=== PATIENT | female | born 1940 | race Caucasian/White ===

== ENCOUNTER 2017-12-13 16:04 | Inpatient (IN) ==
[2017-12-13] MEDS ORDERED: Aspirin 325 MG TABLET PO ONE (16:25)
--- NOTE | 2017-12-13 16:50 | Emergency Department Note ---
Disposition Clinical Impression: Atrial fibrillation with rapid ventricular response, Shortness of breath Disposition: Admitted As Inpatient Condition: Good Referrals: Lloyd Newman MD [Primary Care Provider] - Forms: ED Satisfaction Letter Time of Disposition: 17:44 General Adult HPI - General Chief complaint: ED Shortness of Breath/Dyspnea Stated complaint: SOB Time Seen by Provider: 12/13/17 16:11 Source: patient, EMS Mode of arrival: EMS Limitations: no limitations, age Nursing Notes Reviewed: Yes Vital Signs Reviewed: Yes - History of Present Illness HPI Narrative: Patient is a 76-year-old female that presents the emergency department for shortness of breath. EMS states that when they first arrived at her house her oxygen saturations were in the 50s. They state that she was initially put on nasal cannula oxygen which brought her sats up into the 70s. They put her on a nonrebreather face mask which brought her oxygen saturations up into the 80s. Patient states that she has been feeling increased shortness of breath over the past couple of days. States is been progressively getting worse. Family at bedside denies any history of COPD or heart failure. Patient denies any chest pain at this time. Patient states that the symptoms seem to be worse if she leans back but has not been sleeping in bed because she is unable to get into bed she states that last night she slept on the floor. Patient denies any fevers. Patient states that she has had a mild cough but it has been nonproductive. Pain Scale: 0 - Related Data Home Medications Medication Instructions Recorded Confirmed Aspirin [Ecotrin] 325 mg PO DAILY 12/13/17 12/13/17 Carvedilol [Coreg] 25 mg PO BID 12/13/17 12/13/17 Duloxetine HCl [Cymbalta] 30 mg PO BID 12/13/17 12/13/17 Flecainide Acetate 50 mg PO BID 12/13/17 12/13/17 Metformin HCl 1,000 mg PO BID 12/13/17 12/13/17 Ramipril [Altace] 10 mg PO BID 12/13/17 12/13/17 Previous Rx's Medication Instructions Recorded NIFEdipine XL (24 HR) [Procardia 30 mg PO QPM #30 tablet.er 11/25/17 XL] Allergies Allergy/AdvReac Type Severity Reaction Status Date / Time amino acids [From Ephadrene] Allergy Confusion Verified 11/25/17 14:13 chromium [From Ephadrene] Allergy Confusion Verified 11/25/17 14:13 cyanocobalamin (vitamin B12) Allergy Confusion Verified 11/25/17 14:13 [From Ephadrene] herbal complex no. 35 Allergy Confusion Verified 11/25/17 14:13 [From Ephadrene] iodine Allergy Rash Verified 11/25/17 14:13 Penicillins Allergy Rash Verified 11/25/17 14:13 pyridoxine [From Ephadrene] Allergy Confusion Verified 11/25/17 14:13 All systems ED: reviewed and negative except as stated. Constitutional: Denies: fever Cardiovascular: Denies: chest pain Respiratory: Reports: cough, dyspnea. Denies: sputum production Gastrointestinal: Reports: abdominal pain. Denies: nausea, vomiting Past Medical History - Past Medical History Medical history: Reports: arthritis, atrial fibrillation, CVA, diabetes, GERD, hypertension Psychiatric history: Reports: no psych history - Social History Smoking Status: Never smoker Smokeless Tobacco Status: No Alcohol use: Reports: none Physical Exam - General Limitations: physical limitation, age General appearance: alert, in distress - Head Head exam: atraumatic, normocephalic - Eye Eye exam: Present: normal appearance, EOMI - Neck Neck exam: Present: normal inspection, full ROM, trachea midline - Respiratory Respiratory exam: Present: other (Mild crackles at bilateral bases) - Cardiovascular Cardiovascular exam: Present: tachycardia, irregular rhythm, normal heart sounds , +S1, +S2 - Abdominal Exam Abdominal exam: Present: soft, Non-Tender, normal bowel sounds - Neurological Exam Neurological exam: Present: alert, oriented X3 - Psychiatric Psychiatric exam: Present: normal affect, normal mood - Skin Skin exam: Present: warm, dry, intact Course Vital Signs Temperature 98.3 F 12/13/17 16:11 Pulse Rate 132 12/13/17 16:11 Respiratory Rate 26 12/13/17 16:11 Blood Pressure 166/113 12/13/17 16:11 O2 Sat by Pulse Oximetry 98 12/13/17 16:11 Temperature 98.3 F 12/13/17 16:11 Pulse Rate 114 12/13/17 17:12 Respiratory Rate 24 12/13/17 17:12 Blood Pressure 161/92 12/13/17 17:12 O2 Sat by Pulse Oximetry 95 12/13/17 17:12 Oxygen Delivery Oxygen Delivery Non Rebreather Mask Medical Decision Making - [facility] Narrative Medical decision making narrative: Due to the patient presents to emergency room with increased work of breathing and the patient appearing to be tachycardic in the future fibrillation with rapid ventricular response we will attempt rate control the patient to improve her respiratory status. We also obtain basic laboratory testings, chest x-ray and EKG. EKG did show atrial fibrillation. Chest x-ray showed possible pulmonary edema. After the patient received a bolus of Cardizem her heart rate decreased into the 90s and her respiratory status improved and did not require as much oxygen. Patient's troponin is 0.06 which is likely secondary to the patient's rate. Patient denies having any active chest pain or any chest pain at all today. Patient also has some mild worsening of her chronic kidney disease. This and the symptoms the patient will need to be admitted to the hospital for further evaluation and management. I called and talked the admitting hospitalist Dr. Razo and she is except the patient to their service. She did request a 40 of Lasix be given based on the patient's chest x- ray findings. This will be done prior to patient being admitted to the hospital. - Medical Records Medical records reviewed: Yes I reviewed the patient's medical records. - Lab Data Lab results reviewed: Yes I reviewed the patient's lab results. Result diagrams: 12/13/17 16:25 12/13/17 16:25 Lab Results 12/13/17 12/13/17 12/13/17 Range/Units 16:25 16:25 16:25 WBC 10.8 (4.3-11.1) K/mcL RBC 3.06 L (3.82-4.97) M/mcL Hgb 9.5 L (11.5-15.4) g/dL Hct 27.7 L (35.3-44.9) % MCV 90.5 (83.0-100.0) fL MCH 31.0 (28.0-33.3) pg MCHC 34.3 (31.6-35.5) g/dL RDW 13.3 (11.5-14.5) % Plt Count 368 (140-400) K/mcL MPV 9.8 (9.4-12.4) fL Immature Gran % 1.2 (0-4) % Seg Neutrophils % 84.7 % Lymphocytes % 7.2 % Monocytes % 6.2 % Eosinophils % 0.2 % Basophils % 0.5 % Neutrophils # 9.2 H (1.6-8.9) K/mcL Lymphocytes # 0.8 (0.6-4.6) K/mcL Monocytes # 0.7 (0.0-1.3) K/mcL Eosinophils # 0.0 (0.0-0.6) K/mcL Basophils # 0.1 (0.0-0.2) K/mcL Nucleated RBCs/100 WBC 0.2 H (0) /100 WBC PT 13.4 H (9.4-12.1) Seconds INR 1.2 APTT 26.8 (26.0-36.0) Seconds Sodium 134 L (136-145) mEq/L Potassium 4.9 (3.5-5.1) mEq/L Chloride 102 (98-107) mEq/L Carbon Dioxide 18 L (23-29) mEq/L BUN 41 H (8-23) mg/dL Creatinine 1.39 H (0.60-1.20) mg/dL Est GFR ( Amer) 45 L (> 60) Est GFR (Non-Af Amer) 37 L (> 60) BUN/Creatinine Ratio 29 H (6-26) Glucose 212 H (70-105) mg/dL Calculated Osmolality 294 (280-300) Calcium 9.0 (8.6-10.3) mg/dL Magnesium 1.6 (1.6-2.6) mg/dL Troponin I 0.06 H* (< 0.04) ng/mL TSH 1.676 (0.340-5.600) mcIU/mL - Radiology Data Radiology results reviewed: Yes I reviewed the patient's radiology results. Chest X-Ray 12/13/17 16:25 IMPRESSION: Findings in keeping with congestive heart failure with pulmonary edema and small pleural effusions. D/ / Shad Wylie MD / Shad Wylie MD Interpreting Provider: Shad Wylie MD - EKG Data EKG #1 EKG attestation: Yes I reviewed and interpreted this EKG. EKG results narrative: EKG shows atrial fibrillation with rapid ventricular response at a rate of 139 bpm, QRS duration 86, QTc of 443. No evidence of STEMI on EKG. This is compared to previous EKG on 10/30 08/15 which showed atrial fibrillation at a rate of 113 bpm. EKG #2 EKG attestation: Yes I reviewed and interpreted this EKG. EKG results narrative: EKG at 1700 showed atrial fibrillation at a rate of 108 bpm, curious duration 90 , QTc of 446. There are occasional PVCs noted on EKG. No evidence of STEMI. Critical Care Time Critical Care Time: Yes Total Critical Care Time: 35 Attestation: The high probability of a clinically significant, sudden or life threatening deterioration of the [CV] system(s) required my full and direct attention, intervention and personal management. The aggregate critical care time was [35] minutes. This time is in addition to time spent performing reported procedures but includes the following: [x] Data Review and interpretation [x] Patient assessment and monitoring of vital signs [x] Documentation [x] Medication orders and management Attestation Statement - Attestation Attestation: I examined this patient and my medical decision-making was reviewed with the Resident Physician, Dr. Restrepo. I agree with the documented findings, disposition and treatment plan as described except to the extent set forth below. Patient is a 76-year-old white female history of atrial fibrillation who presents to the emergency department today brought by EMS with the 2 to three- day history of gradually worsening shortness of breath. When asked about palpitations patient denies any but states she never notices her heart racing when it is. She denies any chest pain pressure or heaviness, no fevers or chills no cough no history of COPD and she denies any history of CHF. I agree with patient's physical exam findings as documented. Patient was tachycardic and hypertensive on arrival. Patient's sats improved on nonrebreather mask on arrival. Patient's EKG shows a paced rhythm but underlying rhythm between pacing is irregularly irregular without acute ischemia. Patient's chest x-ray shows mild pulmonary edema. Patient was placed on Cardizem bolus and drip which has controlled her rate that she remains in atrial fibrillation. We discussed starting anticoagulants with the patient she does not take these at home had a bad experience with [facility] and is refusing anticoagulation. Patient has an elevated troponin at 0.06 we have no old troponins for comparison. Patient denies chest pain and is not had any pain throughout this episode over the past few days. Patient with mild renal insufficiency. At this time patient will be admitted to the hospitalist service for further evaluation and management of atrial fibrillation with RVR currently rate controlled now on Cardizem, respiratory distress, acute pulmonary edema. Patient was given Lasix IV and is significantly improved following rate control at this time. Case was discussed with hospitalist who will resume care of the patient.
[2017-12-13 17:04] LABS: Basophils # 0.1 K/mcL (0.0-0.2); Basophils % 0.5 %; Eosinophils % 0.2 %; Hematocrit 27.7 % (35.3-44.9); Hemoglobin 9.5 g/dL (11.5-15.4); Immature Granulocytes % 1.2 % (0-4); Lymphocytes # 0.8 K/mcL (0.6-4.6); Lymphocytes % 7.2 %; Mean Corpuscular HGB Conc 34.3 g/dL (31.6-35.5); Mean Corpuscular Volume 90.5 fL (83.0-100.0); Mean Platelet Volume 9.8 fL (9.4-12.4); Monocytes # 0.7 K/mcL (0.0-1.3); Monocytes % 6.2 %; Neutrophils # 9.2 K/mcL (1.6-8.9); Nucleated Red Blood Cells 0.2 /100 WBC (0); Platelet Count 368 K/mcL (140-400); Red Blood Count 3.06 M/mcL (3.82-4.97); Red Cell Distribution Width 13.3 % (11.5-14.5); Segmented Neutrophils % 84.7 %
[2017-12-13 17:09] LABS: INR 1.2; Prothrombin Time 13.4 Seconds (9.4-12.1)
[2017-12-13 17:12] LABS: Activated Partial Thrombo Time 26.8 Seconds (26.0-36.0)
[2017-12-13 17:24] LABS: Magnesium 1.6 mg/dL (1.6-2.6); Potassium 4.9 mEq/L (3.5-5.1)
[2017-12-13 17:29] LABS: Troponin I 0.06 ng/mL (< 0.04)
[2017-12-13 17:39] LABS: Thyroid Stimulating Hormone 1.676 mcIU/mL (0.340-5.600)
[2017-12-13] MEDS ORDERED: Furosemide 40 MG/4 ML VIAL IVP ONE (18:00)
[2017-12-13] MEDS ORDERED: Dextrose Gel 15 GM/37.5 ML TUBE PO PRN ×2 (18:06)
[2017-12-13] MEDS ORDERED: *HR* Dextrose 50 % in Water (Syg) 50 ML SYRINGE IVP PRN (18:06)
[2017-12-13] MEDS ORDERED: D5% in Water 1,000 ML IVC PRN (18:06)
[2017-12-13] MEDS ORDERED: Naloxone 0.4 MG/ML INJ IVP PRN (18:08)
--- NOTE | 2017-12-13 18:14 | Internal Med History&Physical ---
Date of Encounter: 12/14/17 Time of Encounter: 18:43 Internal Medicine - H&P: HPI Chief complaint: Shortness of breath. Admitted From: Home Plans for Post Hospital Care: Home History of present illness: Ms. Colon is a 76 year old female with medical history of atrial fibrillation with a pacemaker, not on anticoagulation, hypertension who presented with shortness of breath. The patient is seen and evaluated at the bedside in the emergency room with family, she reports being in her usual state of health until 3 days ago when she started getting short of breath. She reports associated raspy sensation and sounds whenever she takes a deep breath. She denies chest pain. She reports cough that is unproductive of sputum, and reports progression, shortness of breath from exertion to rest, there is associated orthopnea, she denies PND. She denies leg edema. The patient reports checking her blood pressure for the past 4 days at home and has no desire heart rate has been persistently high. However she did not present to the hospital because she was not feeling very sick. At my time of review, the patient is dyspneic and in moderate respiratory distress but able to complete sentences. She denies fever or chills, she denies recent travels, she denies cough tenderness, she denies nausea vomiting or diarrhea. She denies changes in urinary habits. She has no urinary symptoms. She denies dizziness or diaphoresis. She denies illicit drug use, she has significant family history of coronary artery disease. Allergies as documented. Upon presentation to the ER, the patient was tachypneic with respiratory rates 25-30, hypoxic and tachycardic with EKG showing A. fib with RVR with a paced rhythm. No ST segment changes were noted. Patient's chest x-ray showed pulmonary edema. Further workup showed normal magnesium, elevated troponin at 0.06, and chemistries at baseline. She does have history of chronic kidney disease stage III and follows up with Dr. Barrow. She continues to require O2 supplementaion via oxy mask The patient has no advance directives patient has a living will and she states that she is full code She is high risk for cardiopulmonary decompensation and demise Past Med Surg Social Fam HX - Past Medical History Medical history: arthritis, atrial fibrillation, CVA, diabetes, GERD, hypertension Psychiatric history: no psych history - Social History Smoking Status: Never smoker Smokeless Tobacco Status: No Alcohol use: none Internal Medicine - H&P: Meds NIFEdipine XL (24 HR) [Procardia XL] 30 mg PO QPM #30 tablet.er 11/25/17 [Rx] Aspirin [Ecotrin] 325 mg PO DAILY 12/13/17 [History] Carvedilol [Coreg] 25 mg PO BID 12/13/17 [History] Duloxetine HCl [Cymbalta] 30 mg PO BID 12/13/17 [History] Flecainide Acetate 50 mg PO BID 12/13/17 [History] Metformin HCl 1,000 mg PO BID 12/13/17 [History] Ramipril [Altace] 10 mg PO BID 12/13/17 [History] 3 Allergy/AdvReac Type Severity Reaction Status Date / Time amino acids [From Ephadrene] Allergy Confusion Verified 11/25/17 14:13 chromium [From Ephadrene] Allergy Confusion Verified 11/25/17 14:13 cyanocobalamin (vitamin B12) Allergy Confusion Verified 11/25/17 14:13 [From Ephadrene] herbal complex no. 35 Allergy Confusion Verified 11/25/17 14:13 [From Ephadrene] iodine Allergy Rash Verified 11/25/17 14:13 Penicillins Allergy Rash Verified 11/25/17 14:13 pyridoxine [From Ephadrene] Allergy Confusion Verified 11/25/17 14:13 All Systems PM: A 10-system review of systems was performed and is negative for pertinent findings except as documented above in the HPI. - Constitutional Constitutional: as per HPI - EENT Eyes: as per HPI Ears: as per HPI Nose, mouth and throat: as per HPI - Cardiovascular Cardiovascular ROS IM: as per HPI - Respiratory Respiratory: as per HPI - Gastrointestinal Gastrointestinal: as per HPI - Genitourinary Genitourinary: as per HPI - Musculoskeletal Musculoskeletal ROS IM: as per HPI - Integumentary Integumentary IM: as per HPI - Neurological Neurological ROS: as per HPI - Hematologic/Lymphatic Hematologic/Lymphatic: as per HPI - Constitutional Vitals: Temp Pulse Resp BP Pulse Ox 98.3 F 114 24 161/92 95 12/13/17 16:11 12/13/17 17:12 12/13/17 17:12 12/13/17 17:12 12/13/17 17:12 General appearance: Present: mild distress, A&O X 3, pleasant Exam: see detailed exam below - Head Head exam: Present: atraumatic, normocephalic - Eye Eye exam: Present: PERRL, conjuntiva pink, sclera anicteric - ENT ENT exam: Present: mucous membranes dry - Neck Neck exam general surgery: Present: normal inspection - Respiratory Respiratory exam: Present: rales (bilateral lower lung bases rales), respiratory distress, tachypnea. Absent: stridor, wheezes - Cardiovascular Cardiovascular exam: Present: gallop, irregular rhythm, JVD, +S1, +S2 - GI/Abdominal GI/Abdominal exam: Present: normal bowel sounds, soft, no peritoneal signs. Absent: distended, tenderness - Extremities Exam Extremities exam: Present: warm, radial pulses palpable and symmetrical. Absent : calf tenderness, cyanotic, pedal edema - Neurological Exam Neurological exam: Present: alert, CN II-XII intact, oriented X3, no focal deficits. Absent: pronater drift, facial droop, speech deficit - Skin Skin exam: Present: dry, intact Internal Med - H&P Results - Labs CBC & Chem 7: 12/14/17 04:58 12/14/17 04:58 Labs: Short CBC 12/13/17 Range/Units 16:25 WBC 10.8 (4.3-11.1) K/mcL Hgb 9.5 L (11.5-15.4) g/dL Hct 27.7 L (35.3-44.9) % Plt Count 368 (140-400) K/mcL Neutrophils # 9.2 H (1.6-8.9) K/mcL BMP 12/13/17 16:25 Sodium 134 L Potassium 4.9 Chloride 102 Carbon Dioxide 18 L BUN 41 H Creatinine 1.39 H Glucose 212 H Calcium 9.0 Cardiac Enzymes 12/13/17 Range/Units 16:25 Troponin I 0.06 H* (< 0.04) ng/mL - Impressions ITS Impressions Chest X-Ray 12/13/17 16:25 IMPRESSION: Findings in keeping with congestive heart failure with pulmonary edema and small pleural effusions. D/ / Shad Wylie MD / Shad Wylie MD Interpreting Provider: Shad Wylie MD - Assessment and plan (1) Atrial fibrillation with rapid ventricular response Current Visit: Yes Status: Acute Assessment and plan: Resume patient's home doses of coreg hold flecanide till cardio eval continue cardizem gtt patient refuses anticoagulation (2) Acute respiratory failure with hypoxia Current Visit: Yes Status: Acute Assessment and plan: secondary to pulmonary edema no ECHO on chart, ordered Continue O2 supplement Patient is full code and may require ventilation if not improving (3) CHF exacerbation Current Visit: Yes Status: Acute Assessment and plan: Follow ECHO Continue lasix IV 40mg daily Strict I/O Daily weighs Fluid restriction, continue BB, continue ACEI Continue O2 Qualifiers: Heart failure type: unspecified Qualified Code(s): I50.9 - Heart failure, unspecified (4) Pulmonary edema Current Visit: Yes Status: Acute Assessment and plan: as above Qualifiers: Chronicity: acute Qualified Code(s): J81.0 - Acute pulmonary edema (5) Elevated troponin Current Visit: Yes Status: Acute (6) HTN (hypertension) Current Visit: Yes Status: Chronic Assessment and plan: continue home meds Qualifiers: Hypertension type: essential hypertension Qualified Code(s): I10 - Essential (primary) hypertension (7) Abnormal renal function Current Visit: Yes Status: Acute Assessment and plan: patient with known CKD III, follows with Dr. Barrow, obtain renal USS - Time Spent With Patient Total time spent is greater than 50% in coordination of care (as documented) at patient's floor/unit and/or counseling patient:
[2017-12-13] MEDS: *HR* Heparin 5,000 UNIT/ML VIAL SQ SCH (18:48)
[2017-12-13] MEDS: Insulin LISPRO 300 UNITS/3 ML VIAL SQ SCH (23:59)
[2017-12-14 01:03] LABS: ABG Base Excess -6 mEq/L (-2 to 3); ABG HCO3 18 mEq/L (21-27); ABG Oxygen Saturation 93 % (95-98); ABG PCO2 28 mmHg (35-45); ABG PH 7.41 pH Units (7.32-7.45); ABG PO2 64 mmHg (85-104); ABG TCO2 18 mEq/L (20-26)
[2017-12-14 05:11] LABS: Basophils # 0.1 K/mcL (0.0-0.2); Basophils % 0.6 %; Eosinophils # 0.1 K/mcL (0.0-0.6); Eosinophils % 1.1 %; Hematocrit 23.8 % (35.3-44.9); Hemoglobin 8.2 g/dL (11.5-15.4); Immature Granulocytes % 1.1 % (0-4); Lymphocytes # 0.6 K/mcL (0.6-4.6); Lymphocytes % 6.1 %; Mean Corpuscular HGB Conc 34.5 g/dL (31.6-35.5); Mean Corpuscular Hemoglobin 31.5 pg (28.0-33.3); Mean Corpuscular Volume 91.5 fL (83.0-100.0); Mean Platelet Volume 9.9 fL (9.4-12.4); Monocytes # 0.6 K/mcL (0.0-1.3); Monocytes % 6.1 %; Neutrophils # 8.6 K/mcL (1.6-8.9); Nucleated Red Blood Cells 0.2 /100 WBC (0); Platelet Count 295 K/mcL (140-400); Red Cell Distribution Width 13.4 % (11.5-14.5)
[2017-12-14 05:33] LABS: Calcium 8.7 mg/dL (8.6-10.3); Potassium 4.3 mEq/L (3.5-5.1)
[2017-12-14] MEDS: *HR* Heparin 5,000 UNIT/ML VIAL SQ SCH ×2 (05:53→16:19)
[2017-12-14] MEDS: Insulin LISPRO 300 UNITS/3 ML VIAL SQ SCH ×4 (08:17→20:27)
[2017-12-14] MEDS: Aspirin Enteric Coated 325 MG Tablet PO SCH (08:20)
[2017-12-14] MEDS: Furosemide 40 MG/4 ML VIAL IVP SCH ×2 (08:33→16:19)
[2017-12-14] MEDS ORDERED: Furosemide 40 MG/4 ML VIAL IVP SCH (09:00)
--- NOTE | 2017-12-14 10:41 | Electrophysiology Consult Note ---
Date of Encounter: 12/14/17 Time of Encounter: 10:37 Assessment and Plan (1) Atrial fibrillation with rapid ventricular response Current Visit: Yes Status: Acute Better rate control on IV cardizem. Will need to review outside records/ pacemaker checks to assess chronicity of AF. (2) CHF exacerbation Current Visit: Yes Status: Acute Agree with diuresis, check LV fxn., review records. Qualifiers: Heart failure type: unspecified Qualified Code(s): I50.9 - Heart failure, unspecified (3) Elevated troponin Current Visit: Yes Status: Acute Likely secondary to AF with RVR and CHF but unknown recent ischemic evluation. Discussion w patient/family: The assessment and plan as outlined above was discussed with the patient and/or family members who expressed understanding and agreement. All questions were answered. Thank you for involving us in the care of your patient. Please call with any questions. History of Present Illness Consult date: 12/14/17 Requesting physician: Aaron Razo Consult reason: AF, CHF Chief complaint: SOB History of present illness: Ms. Colon is a 76 year old female who presents with SOB. She admits to several weeks of worsening symptoms. She has a history of AF and pacemaker but does not follow with cardiology here to details are unclear. Uncertain it AF is paroxsysmal or persistent. An EKG from 2010 shows AF, she is treated with flecainide. She is unaware of her heart rhythm but notes her heart rates have been elevated in the past several weeks. She has refused anticoagulation in the past. Past Med Surg Social Fam HX - Past Medical History Medical history: arthritis, atrial fibrillation, CVA, diabetes, GERD, hypertension Psychiatric history: no psych history - Past Surgical History Surgical History: pacemaker/AICD - Social History Smoking Status: Never smoker Smokeless Tobacco Status: No Alcohol use: none - Family History Father Cause of : "Heart failure Hx Family Cardiac Disorders: Yes Medications and Allergies NIFEdipine XL (24 HR) [Procardia XL] 30 mg PO QPM #30 tablet.er 11/25/17 [Rx] Aspirin [Ecotrin] 325 mg PO DAILY 12/13/17 [History] Carvedilol [Coreg] 25 mg PO BID 12/13/17 [History] Duloxetine HCl [Cymbalta] 30 mg PO BID 12/13/17 [History] Flecainide Acetate 50 mg PO BID 12/13/17 [History] Metformin HCl 1,000 mg PO BID 12/13/17 [History] Ramipril [Altace] 10 mg PO BID 12/13/17 [History] 3 Allergy/AdvReac Type Severity Reaction Status Date / Time amino acids [From Ephadrene] Allergy Confusion Verified 11/25/17 14:13 chromium [From Ephadrene] Allergy Confusion Verified 11/25/17 14:13 cyanocobalamin (vitamin B12) Allergy Confusion Verified 11/25/17 14:13 [From Ephadrene] herbal complex no. 35 Allergy Confusion Verified 11/25/17 14:13 [From Ephadrene] iodine Allergy Rash Verified 11/25/17 14:13 Penicillins Allergy Rash Verified 11/25/17 14:13 pyridoxine [From Ephadrene] Allergy Confusion Verified 11/25/17 14:13 All Systems Review: The remainder of the systems were reviewed and are negative Physical Examination General: Conversant, No Apparent Distress HEENT: Atraumatic, Normocephaly, Mucus Membranes Moist Neck: No JVD, Normal carotid pulses Cardiac: Other (Irreg) Lungs: Other (scattered ronchi) Neuro: Alert and responsive, No focal deficits noted Abdomen: Soft, Non-Tender Skin: No rashes noted on visualized skin Musculoskeletal: No Chest Wall Tenderness Results 12/14/17 04:58 12/14/17 04:58 Lab Results 12/13/17 12/13/17 12/14/17 20:46 22:03 04:58 WBC 10.2 Hgb 8.2 L Hct 23.8 L Plt Count 295 D-Dimer 3945 H Sodium Potassium Chloride Carbon Dioxide BUN Creatinine Glucose Calcium Troponin I 0.07 H* 12/14/17 12/14/17 04:58 04:58 WBC Hgb Hct Plt Count D-Dimer Sodium 135 L Potassium 4.3 Chloride 105 Carbon Dioxide 18 L BUN 44 H Creatinine 1.39 H Glucose 226 H Calcium 8.7 Troponin I 0.07 H* - EKG Interpretation EKG results cardiology: other (AF with ventricular pacing) Consult Discharge Plan - Plan Referrals: Lloyd Newman MD [Primary Care Provider] -
--- NOTE | 2017-12-14 14:37 | Internal Med Progress Note ---
Hospitalist Progress Note - Encounter Date of Encounter: 12/14/17 Time of Encounter: 09:00 - Subjective Interval History: Reports some anxiety, desaturates on NC, currently wearing NRB mask; improved palpitations, dyspnea and chest discomfort; no fever/chills, cough; on IV Cardizem drip; - Exam Vitals: Temp Pulse Resp BP Pulse Ox 98.5 F 77 18 118/71 87 12/14/17 11:23 12/14/17 11:23 12/14/17 11:23 12/14/17 11:23 12/14/17 11:23 Exam: General: Elderly female lying comfortably in bed in no acute distress, on NRB mask Skin: Warm and supple Chest: B/L coarse breath sounds, bibasal crackles Heart: Irregular rate; No rubs or murmurs. Abdomen: Non-distended, soft and nontender Extremities: No clubbing, cyanosis or edema. No calf tenderness. Normal distal pulses. Neurological: Awake, alert and oriented to person, place and time. No focal deficits. Psych: Affect appropriate. - Assessment and Plan (1) Atrial fibrillation with rapid ventricular response Current Visit: Yes Status: Acute Assessment and Plan: patient has history of paroxysmal atrial fibrillation, s/p PPM, refused anticoagulation in the past; on beta finesse and Flecainide at home; started on IV Cardizem drip, HR is improved; continue Coreg, Telemetry monitoring; Flecainide has been held; F/up TTE and Cardiology consult; (2) Pulmonary edema Current Visit: Yes Status: Acute Assessment and Plan: likely due to tachycardia, continue supplemental O2 and IV diuresis; (3) CHF exacerbation Current Visit: Yes Status: Acute Assessment and Plan: No previous Echo report available; check TTE; will increase IV Lasix to 40mg BID, continue fluid restriction, urine output monitoring; beta finesse, CCB; continue Telemetry monitoring; (4) Elevated troponin Current Visit: Yes Status: Acute Assessment and Plan: mild Troponin leak around 0.07, repeat levels flat and adynamic; likely tachycardia-induced; continue Telemetry and current management; (5) HTN (hypertension) Current Visit: Yes Status: Chronic (6) Acute respiratory failure with hypoxia Current Visit: Yes Status: Acute Assessment and Plan: likely due to acute CHF and tachycardia; continue current management, supplemental O2 and wean down FiO2 as tolerated; (7) Chronic kidney disease Current Visit: Yes Status: Chronic Assessment and Plan: serum creatinine noted to be at 1.39, c/w her baseline; monitor closely; (8) Diabetes mellitus Current Visit: Yes Status: Chronic Assessment and Plan: blood sugars noted to be elevated; continue Accucheck blood glucose monitoring with SSI; diabetic diet; DVT Prophylaxis: on s.c Heparin - Time Spent with Patient Total time spent is greater than 50% in coordination of care (as documented) at patient's floor/unit and/or counseling patient: Plan of Care Discussed with: patient Internal Medicine: Result - Labs CBC & Chem 7: 12/14/17 04:58 12/14/17 04:58 Labs: Short CBC 12/14/17 Range/Units 04:58 WBC 10.2 (4.3-11.1) K/mcL Hgb 8.2 L (11.5-15.4) g/dL Hct 23.8 L (35.3-44.9) % Plt Count 295 (140-400) K/mcL Neutrophils # 8.6 (1.6-8.9) K/mcL BMP 12/14/17 04:58 Sodium 135 L Potassium 4.3 Chloride 105 Carbon Dioxide 18 L BUN 44 H Creatinine 1.39 H Glucose 226 H Calcium 8.7 Cardiac Enzymes 12/13/17 12/14/17 Range/Units 22:03 04:58 Troponin I 0.07 H* 0.07 H* (< 0.04) ng/mL - ABG Interpretation ABG results: ABG ABG pH 7.41 pH Units (7.32-7.45) 12/14/17 00:58 ABG pCO2 28 mmHg (35-45) L 12/14/17 00:58 ABG pO2 64 mmHg (85-104) L 12/14/17 00:58 ABG O2 Saturation 93 % (95-98) L 12/14/17 00:58 PT/INR, D-dimer PT 13.4 Seconds (9.4-12.1) H 12/13/17 16:25 D-Dimer 3945 ng/mLFEU (0-500) H 12/13/17 20:46 - Impressions Impressions Head CT 12/13/17 20:33 IMPRESSION: No acute intracranial abnormality. Diffuse atrophic changes with findings suggesting chronic microvascular ischemia D/ / Nikolay Vidal MD / Nikolay Vidal MD Interpreting Provider: Nikolay Vidal MD Pulmonary Perfusion Imaging 12/13/17 22:50 IMPRESSION: Low probability for pulmonary embolus. D/ / Vincenzo Cheng / Vincenzo Cheng Interpreting Provider: Vincenzo Cheng Consult Discharge Plan - Plan Referrals: Lloyd Newman MD [Primary Care Provider] - (2) Pulmonary edema Qualifiers: Chronicity: acute Qualified Code(s): J81.0 - Acute pulmonary edema (3) CHF exacerbation Qualifiers: Heart failure type: unspecified Qualified Code(s): I50.9 - Heart failure, unspecified (5) HTN (hypertension) Qualifiers: Hypertension type: essential hypertension Qualified Code(s): I10 - Essential (primary) hypertension (7) Chronic kidney disease Qualifiers: Chronic kidney disease stage: stage 3 (moderate) Qualified Code(s): N18.3 - Chronic kidney disease, stage 3 (moderate) (8) Diabetes mellitus Qualifiers: Diabetes mellitus type: type 2 Diabetes mellitus longterm insulin use: without longterm use Diabetes mellitus complication status: with kidney complications Diabetes mellitus complication detail: with chronic kidney disease Chronic kidney disease stage: stage 3 (moderate) Qualified Code(s): E11.22 - Type 2 diabetes mellitus with diabetic chronic kidney disease; N18.3 - Chronic kidney disease, stage 3 (moderate)
[2017-12-14] MEDS: Acetaminophen 325 MG TABLET PO PRN (14:45)
[2017-12-14] MEDS ORDERED: Ipratropium/Albuterol Neb 3 ML IH PRN (14:45)
[2017-12-14] MEDS ORDERED: Diltiazem CD (24hr) 120 MG CAPSULE PO SCH (16:15)
[2017-12-14] MEDS ORDERED: NIFEdipine XL (24 HR) 30 MG TAB.ER.24 PO SCH (18:00)
[2017-12-15 05:24] LABS: Basophils % 0.4 %; Eosinophils % 0.5 %; Hematocrit 22.5 % (35.3-44.9); Hemoglobin 7.4 g/dL (11.5-15.4); Immature Granulocytes % 1.4 % (0-4); Lymphocytes # 0.8 K/mcL (0.6-4.6); Lymphocytes % 9.8 %; Mean Corpuscular HGB Conc 32.9 g/dL (31.6-35.5); Mean Corpuscular Hemoglobin 30.3 pg (28.0-33.3); Mean Corpuscular Volume 92.2 fL (83.0-100.0); Mean Platelet Volume 10.1 fL (9.4-12.4); Monocytes # 0.4 K/mcL (0.0-1.3); Monocytes % 5.4 %; Neutrophils # 6.7 K/mcL (1.6-8.9); Nucleated Red Blood Cells 0.4 /100 WBC (0); Platelet Count 252 K/mcL (140-400); Red Blood Count 2.44 M/mcL (3.82-4.97); Red Cell Distribution Width 13.5 % (11.5-14.5); Segmented Neutrophils % 82.5 %
[2017-12-15 05:42] LABS: Calcium 8.6 mg/dL (8.6-10.3); Magnesium 1.7 mg/dL (1.6-2.6); Potassium 4.8 mEq/L (3.5-5.1)
[2017-12-15] MEDS: *HR* Heparin 5,000 UNIT/ML VIAL SQ SCH (06:26)
[2017-12-15] MEDS: Acetaminophen 325 MG TABLET PO PRN ×2 (06:35→18:11)
[2017-12-15] MEDS: Aspirin Enteric Coated 325 MG Tablet PO SCH (09:01)
[2017-12-15] MEDS: Insulin LISPRO 300 UNITS/3 ML VIAL SQ SCH ×4 (09:01→20:18)
[2017-12-15] MEDS: Furosemide 40 MG/4 ML VIAL IVP SCH (09:28)
--- NOTE | 2017-12-15 10:04 | Cardiology Progress Note ---
Date of Encounter: 12/15/17 Time of Encounter: 10:00 Assessment and Plan (1) Acute respiratory failure with hypoxia Current Visit: Yes Status: Acute Per Cardiology: Pulmonology now following. Requiring nasal cannula high flow 10 L of oxygen-- reports not on oxygen at home. (2) Elevated d-dimer Current Visit: Yes Status: Acute Per Cardiology: D-dimer elevated at 3000's, VQ scan low probability for PE. (3) Atrial fibrillation with rapid ventricular response Current Visit: Yes Status: Acute Per Cardiology: Apparent history of atrial fibrillation and reports on flecainide therapy for past 10 years. Currently on flecainide 50 mg by mouth every 12 hours-- was seen by Electrophysiology and remains on at this time. Unsure why patient is on 2 calcium channel blockers-- we will discontinue Procardia 30 mg by mouth every evening. Additionally, current systolic blood pressure noted to be in the 70s, will discontinue Cardizem CD 120 mg by mouth daily and Coreg 25 g by mouth twice a day for now. Will attempt to add low-dose Cardizem 30 mg by mouth every 6 hours as blood pressure will tolerate. Currently telemetry shows average heart rate 72 the past 12 hours, currently AV paced in the 70s. We will need to continue to monitor closely while medications on hold. Attempting to obtain medical records from outside facility. TSH okay. We will need to evaluate long-term continuation of antiarrhythmic. Regarding long-term anticoagulation, historically on full dose aspirin only. Will hold for now since acute anemia. (4) Anemia Current Visit: Yes Status: Acute Per Cardiology: H&H overall downward trend with current hemoglobin in the sevens. Patient denies any active bleeding or blood loss, however does report dark tarry stool on toilet paper about one week ago. Check occult stool. Will discontinue full dose aspirin for now. Recommend GI evaluation. Long-term anticoagulation needs to be reevaluated. Qualifiers: Anemia type: unspecified type Qualified Code(s): D64.9 - Anemia, unspecified (5) CHF exacerbation Current Visit: Yes Status: Acute Per Cardiology: Net I&O -605ml. BNP noted to be 1313. Worsening kidney function. We will discontinue IV Lasix 40 mg twice a day for now. Recommend consult nephrology. Qualifiers: Heart failure type: unspecified Qualified Code(s): I50.9 - Heart failure, unspecified (6) TORITO (acute kidney injury) Current Visit: Yes Status: Acute Per Cardiology: Creatinine worsening from 1.39-2.42. We will discontinue IV Lasix for now. Recommend nephrology consult. (7) Hypotension Current Visit: Yes Status: Acute Per Cardiology: Suspect multifactorial. Again will hold antihypertensive/AV sarah beth blocking agents for now. Also will discontinue IV Lasix. Consider blood transfusion or IV fluids. Qualifiers: Hypotension type: hypotension due to hypovolemia Qualified Code(s): I95.89 - Other hypotension; E86.1 - Hypovolemia (8) Elevated troponin Current Visit: Yes Status: Acute Per Cardiology: Troponins flat and adynamic with peak at 0.07 likely secondary to AF with RVR and CHF but unknown recent ischemic evluation. Current echo showed: Impressions: LVEF 60%. Mild left ventricular hypertrophy. RV size is enlarged. Function is normal by Doppler. Subtle septal flattening during diastole suggests RV volume overload. Bi-atrial enlargement. Moderate-severe tricuspid regurgitation. Estimated RVSP is 71 mmHg. Severe pulmonary hypertension. A device lead was visualized in the right atrium and right ventricle. The IVC is dilated. Left Ventricular Wall Motion: Rest Echo Findings All wall segments showed normal motion. Suspect type II non-STEMI demand ischemia. No cardiac rehabilitation consult warranted at this time. Chest pain-free. Discussion w patient/family: The assessment and plan as outlined above was discussed with the patient and/or family members who expressed understanding and agreement. All questions were answered. Thank you for involving us in the care of your patient. Please call with any questions. Subjective Principal diagnosis: Afib Interval history: Patient seen with son at bedside today. She reports her shortness of breath has improved during hospital stay. He reports overall she appears to look better. She does report she continues to have short of breath and normally does not utilize oxygen at home. She denies any chest pain or palpitations. Does report dizziness upon standing with using bedside commode during hospital stay. Denies any current active bleeding or blood loss. Does report noted black stool and toilet paper about one week ago. Follows with Dr. Gore with cardiology at outside facility. Reports has been on flecainide for about 10 years. Only anticoagulated with full dose aspirin. Reports last pacer check done earlier this month. Objective Vital Signs, Last 4 Hours Temp Pulse Resp BP Pulse Ox 12/15/17 09:48 72/54 12/15/17 06:40 96.2 F L 72 18 89/55 98 General: Conversant HEENT: Atraumatic, Normocephaly, Mucus Membranes Moist Neck: No JVD, Normal carotid pulses Cardiac: Reg Rate and Rhythm, Normal S1 and S2, No Murmur Lungs: Other (On nasal cannula high flow oxygen 10 L, conversational dyspnea noted, decreased breath sounds throughout, mildly labored at rest) Neuro: Alert and responsive, No focal deficits noted Abdomen: Soft, Non-Tender Skin: No rashes noted on visualized skin, Other (Pale appearing) Musculoskeletal: No Chest Wall Tenderness Extremities: No Clubbing, No Cyanosis, No Edema, Normal Pulses Results 12/15/17 04:57 12/15/17 04:57 Lab Results Laboratory Tests 08/01/16 07/14/17 07/14/17 11:18 14:48 14:48 Hgb 11.0 L Hct 32.6 L D-Dimer Creatinine 1.34 H 1.15 Est GFR (Non-Af Amer) 46 L Magnesium Troponin I B-Natriuretic Peptide TSH 12/13/17 12/13/17 12/13/17 16:25 16:25 16:31 Hgb 9.5 L Hct 27.7 L D-Dimer Creatinine 1.39 H Est GFR (Non-Af Amer) 37 L Magnesium Troponin I 0.06 H* B-Natriuretic Peptide 1313 H TSH 1.676 12/13/17 12/13/17 12/14/17 20:46 22:03 04:58 Hgb Hct D-Dimer 3945 H Creatinine Est GFR (Non-Af Amer) Magnesium Troponin I 0.07 H* 0.07 H* B-Natriuretic Peptide TSH 12/15/17 12/15/17 04:57 04:57 Hgb 7.4 L Hct 22.5 L D-Dimer Creatinine 2.42 H Est GFR (Non-Af Amer) 19 L Magnesium 1.7 Troponin I B-Natriuretic Peptide TSH ITS Impressions Chest X-Ray 12/13/17 16:25 IMPRESSION: Findings in keeping with congestive heart failure with pulmonary edema and small pleural effusions. D/ / Shad Wylie MD / Shad Wylie MD Interpreting Provider: Shad Wylie MD Echocardiogram 12/13/17 18:07 Impressions: LVEF 60%. Mild left ventricular hypertrophy. RV size is enlarged. Function is normal by Doppler. Subtle septal flattening during diastole suggests RV volume overload. Bi-atrial enlargement. Moderate-severe tricuspid regurgitation. Estimated RVSP is 71 mmHg. Severe pulmonary hypertension. A device lead was visualized in the right atrium and right ventricle. The IVC is dilated. Left Ventricular Wall Motion: Rest Echo Findings All wall segments showed normal motion. Findings: Study Quality * Technically adequate exam. ECG Findings * Atrial fibrillation. Left Ventricle * LVEF 60%. * Mild concentric left ventricular hypertrophy. * Indeterminate diastolic function. Right Ventricle * RV size is enlarged. Function is normal by Doppler. Left Atrium * Severely dilated left atrium. Right Atrium * Severely dilated right atrium. Mitral Valve * No mitral stenosis. * Mildly calcified mitral valve leaflets. * Trace mitral regurgitation. Aortic Valve * No aortic regurgitation. * Trileaflet aortic valve. * Focal calcification of the NCC. * No aortic stenosis. Tricuspid Valve * Tricuspid valve not well visualized. * Moderate-severe tricuspid regurgitation. * Estimated RA pressure is 20 mmHg. * Estimated RVSP is 71 mmHg. * Severe pulmonary hypertension. Pulmonic Valve * Pulmonic valve is not well visualized. * No pulmonic stenosis. * No pulmonic regurgitation. Pulmonary Artery * Pulmonary artery not well visualized. Aorta * Normally sized aortic root. Pericardium * There is no pericardial effusion present. Device lead * A device lead was visualized in the right atrium and right ventricle. Interatrial Septum * No evidence of PFO by color Doppler. IVC * The IVC is dilated. * < 50% respiratory change. Head CT 12/13/17 20:33 IMPRESSION: No acute intracranial abnormality. Diffuse atrophic changes with findings suggesting chronic microvascular ischemia D/ / Nikolay Vidal MD / Nikolay Vidal MD Interpreting Provider: Nikolay Vidal MD Pulmonary Perfusion Imaging 12/13/17 22:50 IMPRESSION: Low probability for pulmonary embolus. D/ / Vincenzo Cheng / Vincenzo Cheng Interpreting Provider: Vincenzo Cheng Active Medications Acetaminophen (Tylenol) 650 mg PO Q6HR PRN PRN Reason: Fever Stop: 06/15/18 14:34 Last Admin: 12/15/17 06:35 Dose: 650 mg Albuterol/Ipratropium (Duoneb) 3 ml IH [id number] PRN PRN Reason: Shortness Of Breath/Wheezing Stop: 06/15/18 14:46 Aspirin (Aspirin Ec) 325 mg PO DAILY ANDREW Stop: 06/15/18 09:01 Last Admin: 12/15/17 09:01 Dose: 325 mg Carvedilol (Coreg) 25 mg PO BIDWM ANDREW PRN Reason: Protocol Stop: 06/15/18 08:01 Last Admin: 12/14/17 16:19 Dose: 25 mg Dextrose/Water (Dextrose 50% (Syg)) 25 ml IVP AD PRN PRN Reason: Hypoglycemia Stop: 06/14/18 18:07 Diltiazem HCl (Cardizem Cd) 120 mg PO DAILY ANDREW Stop: 06/15/18 16:16 Last Admin: 12/14/17 17:30 Dose: 120 mg Duloxetine HCl (Cymbalta) 30 mg PO BID ANDREW Stop: 06/14/18 21:01 Last Admin: 12/15/17 09:01 Dose: 30 mg Flecainide Acetate (Flecainide) 50 mg PO BID ANDREW Stop: 06/14/18 21:01 Furosemide (Lasix) 40 mg IVP BIDDIURETIC ANDREW Stop: 06/15/18 09:01 Last Admin: 12/15/17 09:28 Dose: Not Given Glucagon (Glucagen) 1 mg IM ONCE PRN PRN Reason: Hypoglycemia Stop: 06/14/18 18:07 Glucose (Gluctose) 15 gm PO ONCE PRN PRN Reason: Hypoglycemia Stop: 06/14/18 18:07 Glucose (Gluctose) 30 gm PO ONCE PRN PRN Reason: Hypoglycemia Stop: 06/14/18 18:07 Dextrose (Dextrose 5%) 1,000 mls @ 100 mls/hr IVC .Q10H PRN PRN Reason: HYPOGLYCEMIA Stop: 06/14/18 18:07 Insulin Human Lispro (Humalog) 0 units SQ TIDAC ANDREW PRN Reason: Protocol Stop: 06/15/18 07:31 Last Admin: 12/15/17 09:01 Dose: 4 units Insulin Human Lispro (Humalog) 0 units SQ HS ANDREW PRN Reason: Protocol Stop: 06/14/18 21:01 Last Admin: 12/14/17 20:27 Dose: 3 units Loperamide HCl (Imodium) 2 mg PO QID PRN PRN Reason: Diarrhea Stop: 06/15/18 10:40 Last Admin: 12/14/17 14:45 Dose: 2 mg Naloxone HCl (Narcan) 0.4 mg IVP Q2MIN PRN PRN Reason: SEE COMMENTS Stop: 06/14/18 18:09 Nifedipine (Procardia Xl) 30 mg PO QPM ANDREW PRN Reason: Protocol Stop: 06/15/18 18:01 Last Admin: 12/14/17 16:19 Dose: 30 mg - Imaging and Cardiology Echo: report reviewed - EKG Interpretation EKG results cardiology: other (Telemetry reviewed with average heart rate the past 12 hours 72, currently AV paced in the 70s) Consult Discharge Plan - Plan Referrals: Lloyd Newman MD [Primary Care Provider] -
[2017-12-15 10:55] LABS: Estimated Average Glucose 166 mg/dl; Hemoglobin A1C 7.4 %
--- NOTE | 2017-12-15 11:16 | Pulmonology Consult Note ---
<Malinda Cordova E - Last Filed: 12/15/17 14:04> Date of Encounter: 12/15/17 Time of Encounter: 11:14 Assessment and Plan (1) Acute respiratory failure with hypoxia Current Visit: Yes Status: Acute Possibly due to diastolic right heart failure. Bilateral lower lobe crackles heard. Incentive spirometry High flow oxygen with Teja device. Repeat chest x-ray (2) CHF exacerbation Current Visit: Yes Status: Acute Diastolic right heart failure Acute on chronic congestive heart failure Will do a trial of albumin for her decreased blood pressure rechecked this level later in the day We will type and screen in case blood products are needed EPIV ordered for better access Qualifiers: Heart failure type: right-sided Qualified Code(s): I50.813 - Acute on chronic right heart failure (3) Acute on chronic congestive heart failure with left ventricular diastolic dysfunction Current Visit: Yes Status: Acute Patient had been aggressively diuresed after admission to the hospital. Pitting edema 1+ at the feet Bibasilar lower lobe crackles heard We believe that patient could be low on fluids causing her hypotension. Added albumin we will check that level later today and recheck blood pressure is necessary We will do type and screen in case patient needs a products EPIV was ordered or better line access (4) Atrial fibrillation with rapid ventricular response Current Visit: Yes Status: Acute Patient is currently rate controlled She refuses anticoagulation at this time. History of Present Illness Consult date: 12/15/17 Requesting physician: Alanna Irvin Reason for consult: other (acute respiratory failure, right heart failure, a fib with RVR) Chief complaint: Shortness of breath History of present illness: This Isaiah is a 76-year-old female with medical history of A. fib with a pacemaker she is not currently on any anticoagulation. Also has a history of hypertension, and chronic kidney disease stage III which she follows with Dr. Barrow for. She presented with a history of shortness of breath to the ED. He states her blood pressure typically runs in the 110-120 systolic range. When she presented to the ED she had a respiratory rate 25-30, hypoxic and tachycardic with EKG showing A. fib with RVR with a paced rhythm. Patient's chest x-ray showed pulmonary edema. She was put on Cardizem drip in the ED, 40 mg daily of Lasix, and fluid restriction. Currently she was on high flow oxygen by nasal cannula. Her blood pressure had decreased to 72/54 but on repeat was 80/55 with a map of 68, Cardizem had been stopped. V/P scan showed low probability for pulmonary embolus. Past Med Surg Social Fam HX - Past Medical History Medical history: arthritis, atrial fibrillation, CVA, diabetes, GERD, hypertension Psychiatric history: no psych history - Past Surgical History Surgical History: pacemaker/AICD - Social History Smoking Status: Never smoker Smokeless Tobacco Status: No Alcohol use: none - Family History Father Cause of : "Heart failure Hx Family Cardiac Disorders: Yes Medications and Allergies NIFEdipine XL (24 HR) [Procardia XL] 30 mg PO QPM #30 tablet.er 11/25/17 [Rx] Aspirin [Ecotrin] 325 mg PO DAILY 12/13/17 [History] Carvedilol [Coreg] 25 mg PO BID 12/13/17 [History] Duloxetine HCl [Cymbalta] 30 mg PO BID 12/13/17 [History] Flecainide Acetate 50 mg PO BID 12/13/17 [History] Metformin HCl 1,000 mg PO BID 12/13/17 [History] Ramipril [Altace] 10 mg PO BID 12/13/17 [History] 3 Allergy/AdvReac Type Severity Reaction Status Date / Time amino acids [From Ephadrene] Allergy Confusion Verified 11/25/17 14:13 chromium [From Ephadrene] Allergy Confusion Verified 11/25/17 14:13 cyanocobalamin (vitamin B12) Allergy Confusion Verified 11/25/17 14:13 [From Ephadrene] herbal complex no. 35 Allergy Confusion Verified 11/25/17 14:13 [From Ephadrene] iodine Allergy Rash Verified 11/25/17 14:13 Penicillins Allergy Rash Verified 11/25/17 14:13 pyridoxine [From Ephadrene] Allergy Confusion Verified 11/25/17 14:13 All Systems: The remainder of the systems were reviewed and are negative - Constitutional Constitutional: other (Patient did have a fall 1-2 weeks ago in the backyard, the next day she had some black stool, this is the only time she had this.), no daytime sleepiness, no fatigue, no headache(s) - EENT Nose, mouth and throat: no dizziness, no headache(s) - Cardiovascular Cardiovascular: dyspnea, irregular heart rhythm, no chest pain, no radiating jaw , neck or arm pain - Respiratory Respiratory: dyspnea (3 days prior to admission that got worse over those 3 days.) - Gastrointestinal Gastrointestinal: diarrhea (She states she gets diarrhea nearly daily, and takes over the counter antidiarrheal medication.), melena (1 time approximately 1 week ago, formed) - Neurological Neurological: no confusion, no dizziness, no frequent falls Physical Examination Vital Signs: Vital Signs, Last 4 Hours BP 12/15/17 09:48 72/54 General appearance: no acute distress Eyes: nonicteric ENT: oropharynx dry Neck: supple, no lymphadenopathy Effort: mildly labored Auscultation: bilateral: wheezes (Lower lobes) Cardiovascular: irregular rhythm, other (Rate controlled A. fib) Gastrointestinal: normoactive bowel sounds, soft, non-tender Integumentary: normal Extremities: no cyanosis, edema (1+ at feet) Musculoskeletal: no deformities normal mental status mood appropriate, affect normal Results - Laboratory Findings CBC and BMP: 12/15/17 04:57 12/15/17 04:57 ABG ABG pH 7.41 pH Units (7.32-7.45) 12/14/17 00:58 ABG pCO2 28 mmHg (35-45) L 12/14/17 00:58 ABG pO2 64 mmHg (85-104) L 12/14/17 00:58 ABG O2 Saturation 93 % (95-98) L 12/14/17 00:58 PT/INR, D-dimer PT 13.4 Seconds (9.4-12.1) H 12/13/17 16:25 D-Dimer 3945 ng/mLFEU (0-500) H 12/13/17 20:46 Abnormal lab findings: Abnormal lab results RBC 2.44 M/mcL (3.82-4.97) L 12/15/17 04:57 Hgb 7.4 g/dL (11.5-15.4) L 12/15/17 04:57 Hct 22.5 % (35.3-44.9) L 12/15/17 04:57 Nucleated RBCs/100 WBC 0.4 /100 WBC (0) H 12/15/17 04:57 PT 13.4 Seconds (9.4-12.1) H 12/13/17 16:25 D-Dimer 3945 ng/mLFEU (0-500) H 12/13/17 20:46 ABG pCO2 28 mmHg (35-45) L 12/14/17 00:58 ABG pO2 64 mmHg (85-104) L 12/14/17 00:58 ABG HCO3 18 mEq/L (21-27) L 12/14/17 00:58 ABG Total CO2 18 mEq/L (20-26) L 12/14/17 00:58 ABG O2 Saturation 93 % (95-98) L 12/14/17 00:58 ABG Base Excess -6 mEq/L (-2 to 3) L 12/14/17 00:58 Sodium 132 mEq/L (136-145) L 12/15/17 04:57 Carbon Dioxide 17 mEq/L (23-29) L 12/15/17 04:57 BUN 56 mg/dL (8-23) H 12/15/17 04:57 Creatinine 2.42 mg/dL (0.60-1.20) H 12/15/17 04:57 Est GFR ( Amer) 23 (> 60) L 12/15/17 04:57 Est GFR (Non-Af Amer) 19 (> 60) L 12/15/17 04:57 Glucose 187 mg/dL (70-105) H 12/15/17 04:57 POC Glucose 197 mg/dL (70-99) H 12/15/17 06:49 Hemoglobin A1c 7.4 % (-5.6) H 12/15/17 04:57 Troponin I 0.07 ng/mL (< 0.04) H* 12/14/17 04:58 B-Natriuretic Peptide 1313 pg/mL (Less than 100) H 12/13/17 16:31 - Clinical Findings Intake & Output: Intake & Output 12/14/17 12/15/17 12/15/17 23:59 07:59 15:59 Intake Total 25 / 25 0 / 0 Output Total 0 / 0 200 / 200 Balance 25 / 25 -200 / -200 Weight 66.1 kg Consult Discharge Plan - Plan Referrals: Lloyd Newman MD [Primary Care Provider] - <Carmina Moraes - Last Filed: 12/15/17 15:54> Date of Encounter: 12/15/17 All Systems: The remainder of the systems were reviewed and are negative Physical Examination Vital Signs: Vital Signs, Last 4 Hours Temp Pulse Resp BP Pulse Ox 12/15/17 11:13 96.8 F L 73 18 78/54 94 Results - Laboratory Findings CBC and BMP: 12/15/17 04:57 12/15/17 04:57 ABG ABG pH 7.41 pH Units (7.32-7.45) 12/14/17 00:58 ABG pCO2 28 mmHg (35-45) L 12/14/17 00:58 ABG pO2 64 mmHg (85-104) L 12/14/17 00:58 ABG O2 Saturation 93 % (95-98) L 12/14/17 00:58 PT/INR, D-dimer PT 13.4 Seconds (9.4-12.1) H 12/13/17 16:25 D-Dimer 3945 ng/mLFEU (0-500) H 12/13/17 20:46 Abnormal lab findings: Abnormal lab results RBC 2.44 M/mcL (3.82-4.97) L 12/15/17 04:57 Hgb 7.4 g/dL (11.5-15.4) L 12/15/17 04:57 Hct 22.5 % (35.3-44.9) L 12/15/17 04:57 Nucleated RBCs/100 WBC 0.4 /100 WBC (0) H 12/15/17 04:57 PT 13.4 Seconds (9.4-12.1) H 12/13/17 16:25 D-Dimer 3945 ng/mLFEU (0-500) H 12/13/17 20:46 ABG pCO2 28 mmHg (35-45) L 12/14/17 00:58 ABG pO2 64 mmHg (85-104) L 12/14/17 00:58 ABG HCO3 18 mEq/L (21-27) L 12/14/17 00:58 ABG Total CO2 18 mEq/L (20-26) L 12/14/17 00:58 ABG O2 Saturation 93 % (95-98) L 12/14/17 00:58 ABG Base Excess -6 mEq/L (-2 to 3) L 12/14/17 00:58 Sodium 132 mEq/L (136-145) L 12/15/17 04:57 Carbon Dioxide 17 mEq/L (23-29) L 12/15/17 04:57 BUN 56 mg/dL (8-23) H 12/15/17 04:57 Creatinine 2.42 mg/dL (0.60-1.20) H 12/15/17 04:57 Est GFR ( Amer) 23 (> 60) L 12/15/17 04:57 Est GFR (Non-Af Amer) 19 (> 60) L 12/15/17 04:57 Glucose 187 mg/dL (70-105) H 12/15/17 04:57 POC Glucose 197 mg/dL (70-99) H 12/15/17 06:49 Hemoglobin A1c 7.4 % (-5.6) H 12/15/17 04:57 Iron 20 mcg/dL (50-170) L 12/15/17 12:20 % Saturation 8 % (15-50) L 12/15/17 12:20 Transferrin 184 mg/dL (203-362) L 12/15/17 12:20 Ferritin > 1500 ng/mL (10-120) H 12/15/17 12:20 Troponin I 0.07 ng/mL (< 0.04) H* 12/14/17 04:58 B-Natriuretic Peptide 1313 pg/mL (Less than 100) H 12/13/17 16:31 Vitamin B12 > 1500 pg/mL (250-1100) H 12/15/17 12:20 Folate > 22.3 ng/mL (3.0-16.0) H 12/15/17 12:20 - Clinical Findings Intake & Output: Intake & Output 12/14/17 12/15/17 12/15/17 23:59 07:59 15:59 Intake Total 25 / 25 0 / 0 Output Total 0 / 0 200 / 200 Balance 25 / 25 -200 / -200 Weight 66.1 kg - Attending Attestation I saw and evaluated this patient and my medical decision-making was reviewed with the Resident Physician. I agree with the documented findings, disposition and treatment plan as described except to the extent set forth below. We independently had [id number] contact with the patient Patient seen and examined at bedside Labs, radiology, chart personally reviewed. Management was reviewed during multidisciplinary critical care rounds. 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 Pulm: Patient has severe VQ mismatch with acute hypoxic respiratory failure most likely secondary to hydrostatic pulmonary edema patient had a pulmonary perfusion imaging on admission showed low probability of PE still PE can be a possibility we will wait for the DVT scan. Will hold off diuresis because blood pressure is low. Cards: Patient has severe right-sided heart failure with left-sided diastolic failure presented with acute exacerbation of diastolic heart failure after extensive diuresis probably due to drop the preload as well as she is hypotensive now. Cardiology on consult to better delineate whether the LV EDP is low or high patient will need right heart catheterization will discuss with cardiology might need advance heart failure management in tertiary care center the patient is was not getting better. FEN-GI: Advance diet as tolerated Renal: Patient has worsening acute on chronic kidney function nephrology on board ID: According to primary team. Patient can stay in the medical telemetry unit as her blood pressure is more stable and her oxygenation is more stable. CODE: I discussed in length about the CODE STATUS patient is hesitant about intubation and mechanical ventilation she is going to discuss further with son and . For now patient will be full code.
--- NOTE | 2017-12-15 12:56 | Internal Med Progress Note ---
Hospitalist Progress Note - Encounter Date of Encounter: 12/15/17 Time of Encounter: 09:45 - Subjective Interval History: Continues to require high flow O2; reports some improvement in dyspnea at rest but has exertional dyspnea even with using the bedside commode; no chest pain, fever, chills, cough, palpitations; - Exam Vitals: Temp Pulse Resp BP Pulse Ox 96.8 F L 73 18 78/54 94 12/15/17 11:13 12/15/17 11:13 12/15/17 11:13 12/15/17 11:13 12/15/17 11:13 Exam: General: Elderly female lying comfortably in bed in no acute distress, on face mask, pallor noted Skin: Warm and supple Chest: B/L coarse breath sounds, bibasal crackles Heart: Irregular rate; No rubs or murmurs. Abdomen: Non-distended, soft and nontender Extremities: trace pedal edema B/L Neurological: Awake, alert and oriented to person, place and time. No focal deficits. Psych: Affect appropriate. - Assessment and Plan (1) Acute respiratory failure with hypoxia Current Visit: Yes Status: Acute Assessment and Plan: Patient continues to require significant amount of supplemental oxygen, 10-15 L on simple mask. Ventilation perfusion lung scan showed low probability for pulmonary embolism. However, echocardiogram shows right heart failure with significant pulmonary hypertension. Consulted Pulmonology due to respiratory failure, hypotension, worsening renal failure and anemia; she is at high risk for complications; Pulmonology recommendations appreciated; (2) Atrial fibrillation with rapid ventricular response Current Visit: Yes Status: Acute Assessment and Plan: patient has history of paroxysmal atrial fibrillation, s/p PPM, refused anticoagulation in the past; on beta finesse and Flecainide at home; held Flecainide at admission; HR improved today; Cardiology on board; held Coreg, Cardizem this morning due to low BP; f/up Cardiology recommendations; TTE showed preserved EF, mild LVH, enlarged RV, biatrial enlargement, moderate- severe TR, severe pulmonary HTN; (3) Pulmonary edema Current Visit: Yes Status: Acute Assessment and Plan: due to acute right heart failure; held Lasix for now due to hypotension; (4) CHF exacerbation Current Visit: Yes Status: Acute Assessment and Plan: Lasix held due to hypotension; started on gentle IV hydration and IV Albumin per Pulmonology recommendations; held beta finesse and CCB due to hypotension; of note, patient is noted to be on 2 different CCBs at home; continue Telemetry monitoring; (5) Elevated troponin Current Visit: Yes Status: Acute Assessment and Plan: mild Troponin leak around 0.07, repeat levels flat and adynamic; likely due to demand ischemia and acute CHF; continue Telemetry and current management; (6) HTN (hypertension) Current Visit: Yes Status: Chronic Assessment and Plan: BP low; held CCB, beta finesse, ACEI and diuretics; (7) Diabetes mellitus Current Visit: Yes Status: Chronic Assessment and Plan: blood sugars noted to be improving; HbA1C 7.4%; continue Accucheck blood glucose monitoring with SSI; diabetic diet; (8) Acute kidney injury superimposed on chronic kidney disease Current Visit: Yes Status: Acute Assessment and Plan: baseline serum creatinine around 1.3-1.4; worsening today, up to 2.42; IV Lasix held for now, started on gentle IV hydration and IV Albumin; will consult Nephrology; (9) Anemia Current Visit: Yes Status: Acute Assessment and Plan: Acute on chronic anemia with underlying CKD; baseline Hb around 10-11, now at 7.4; check iron profile, serum Vit B12, FA levels; check stool for occult blood ; hold pharmacologic anticoagulation, start EPCDs; - Time Spent with Patient Total time spent is greater than 50% in coordination of care (as documented) at patient's floor/unit and/or counseling patient: Plan of Care Discussed with: ada accommodation consultant Internal Medicine: Result - Labs CBC & Chem 7: 12/15/17 04:57 12/15/17 04:57 Labs: Short CBC 12/15/17 Range/Units 04:57 WBC 8.1 (4.3-11.1) K/mcL Hgb 7.4 L (11.5-15.4) g/dL Hct 22.5 L (35.3-44.9) % Plt Count 252 (140-400) K/mcL Neutrophils # 6.7 (1.6-8.9) K/mcL BMP 12/15/17 04:57 Sodium 132 L Potassium 4.8 Chloride 102 Carbon Dioxide 17 L BUN 56 H Creatinine 2.42 H Glucose 187 H Calcium 8.6 - ABG Interpretation ABG results: ABG ABG pH 7.41 pH Units (7.32-7.45) 12/14/17 00:58 ABG pCO2 28 mmHg (35-45) L 12/14/17 00:58 ABG pO2 64 mmHg (85-104) L 12/14/17 00:58 ABG O2 Saturation 93 % (95-98) L 12/14/17 00:58 PT/INR, D-dimer PT 13.4 Seconds (9.4-12.1) H 12/13/17 16:25 D-Dimer 3945 ng/mLFEU (0-500) H 12/13/17 20:46 Consult Discharge Plan - Plan Referrals: Lloyd Newman MD [Primary Care Provider] - (3) Pulmonary edema Qualifiers: Chronicity: acute Qualified Code(s): J81.0 - Acute pulmonary edema (4) CHF exacerbation Qualifiers: Heart failure type: right-sided Qualified Code(s): I50.813 - Acute on chronic right heart failure (6) HTN (hypertension) Qualifiers: Hypertension type: essential hypertension Qualified Code(s): I10 - Essential (primary) hypertension (7) Diabetes mellitus Qualifiers: Diabetes mellitus type: type 2 Diabetes mellitus half-way insulin use: without half-way use Diabetes mellitus complication status: with kidney complications Diabetes mellitus complication detail: with chronic kidney disease Chronic kidney disease stage: stage 3 (moderate) Qualified Code(s): E11.22 - Type 2 diabetes mellitus with diabetic chronic kidney disease; N18.3 - Chronic kidney disease, stage 3 (moderate) (9) Anemia Qualifiers: Anemia type: unspecified type Qualified Code(s): D64.9 - Anemia, unspecified
--- NOTE | 2017-12-15 13:08 | Event Note ---
Date of Encounter: 12/15/17 Time of Encounter: 13:00 - Cardiology Event Note Correction: Flecanide has been on hold during stay for the past 2 days. Not anticoagulated. Will discuss with EP potential resumption, however it appears was failed therapy and patient not on AC at this juncture.
[2017-12-15 13:13] LABS: % Iron Saturation 8 % (15-50); Iron 20 mcg/dL (50-170); Transferrin 184 mg/dL (203-362)
[2017-12-15 13:34] LABS: Ferritin > 1500 ng/mL (10-120)
[2017-12-15 13:40] LABS: Folate > 22.3 ng/mL (3.0-16.0); Vitamin B12 > 1500 pg/mL (250-1100)
--- NOTE | 2017-12-15 14:45 | Nephrology Consult Note ---
Date of Encounter: 12/15/17 Time of Encounter: 14:31 Assessment and Plan (1) Acute kidney injury superimposed on chronic kidney disease Current Visit: Yes Status: Acute Dr. Myers last note Scr was 1.15 and GFR was 55. Scr is 2.42 and GFR is 19. Scr and GFR elevated in the setting of hypotension related to diuresis in a patient with significant right heart failure. Pt has only made 200 cc of urine in last 24 hours, ordered a Ochoa Cath to be placed. Urine and serum studies ordered. EF is 50%. 1 Liter NS ordered. (2) Pulmonary HTN Current Visit: Yes Status: Acute Per echo on 12/14/17 Estimated RVSP is 71 mmHg. Severe pulmonary hypertension. Per pulmonology. Would recommend transferring to tertiary hospital if conservative medicine is not successful. (3) Anemia Current Visit: Yes Status: Acute Goal Hgb is 10-11. Hgb is 7.4 today. Ferritin is > than 1500, Ferrous Sufate started today. Qualifiers: Qualified Code(s): D64.9 - Anemia, unspecified History of Present Illness - Reason for Consult Consult date: 12/15/17 Acute Kidney Injury, Chronic Kidney Disease - Chief Complaint shortness of breath. - History of Present Illness Mrs. Colon is a 76 year old female with CKD 3. She is a patient of Dr. Marbella murphy in the office. Last OV Scr was 1.15 and GFR was 55. PMH:HTN, DM, OA, CVA, CAD s/p pacemaker. She presented to ED with shortness of breath on Friday12/13/17. Apparently, when EMS arrived her O2 sats were in the 50's. They placed her on N/ C and it went up to the 80's. She was transported to our ED and was admitted for shortness of breath/dyspnea. Admits to Orthopnea. Denies chest pain. Denies fever/ chills. Denies nausea/vomiting/diarrhea. Admits to non productive cough. TORITO workup has been started. Retroperitoneal US just completed. Urine and Serum studies ordered. Pt reports she was not feeling well at home, but she was urinating without difficulty. Since being in the hospital she has only voided 200 cc's which was with a straight cath. Past Med Surg Social Fam HX - Past Medical History Medical history: arthritis, atrial fibrillation, CVA, diabetes, GERD, hypertension Psychiatric history: no psych history - Past Surgical History Surgical History: pacemaker/AICD - Social History Smoking Status: Never smoker Smokeless Tobacco Status: No Alcohol use: none - Family History Father Cause of : "Heart failure Hx Family Cardiac Disorders: Yes Medications and Allergies NIFEdipine XL (24 HR) [Procardia XL] 30 mg PO QPM #30 tablet.er 11/25/17 [Rx] Aspirin [Ecotrin] 325 mg PO DAILY 12/13/17 [History] Carvedilol [Coreg] 25 mg PO BID 12/13/17 [History] Duloxetine HCl [Cymbalta] 30 mg PO BID 12/13/17 [History] Flecainide Acetate 50 mg PO BID 12/13/17 [History] Metformin HCl 1,000 mg PO BID 12/13/17 [History] Ramipril [Altace] 10 mg PO BID 12/13/17 [History] 3 Allergy/AdvReac Type Severity Reaction Status Date / Time amino acids [From Ephadrene] Allergy Confusion Verified 11/25/17 14:13 chromium [From Ephadrene] Allergy Confusion Verified 11/25/17 14:13 cyanocobalamin (vitamin B12) Allergy Confusion Verified 11/25/17 14:13 [From Ephadrene] herbal complex no. 35 Allergy Confusion Verified 11/25/17 14:13 [From Ephadrene] iodine Allergy Rash Verified 11/25/17 14:13 Penicillins Allergy Rash Verified 11/25/17 14:13 pyridoxine [From Ephadrene] Allergy Confusion Verified 11/25/17 14:13 Review of Systems Constitutional: fatigue, no chills, no fever(s) Cardiovascular: dyspnea, no chest pain Respiratory: cough Gastrointestinal: no diarrhea, no nausea, no vomiting Exam - Vital Signs Vital signs: Initial Vital Signs Temp Pulse Resp BP Pulse Ox 98.3 F 132 26 166/113 98 12/13/17 16:11 12/13/17 16:11 12/13/17 16:11 12/13/17 16:11 12/13/17 16:11 Vital Signs - Last 8 Hours Temp Pulse Resp BP Pulse Ox 12/15/17 11:13 96.8 F L 73 18 78/54 94 12/15/17 09:48 72/54 12/15/17 06:40 96.2 F L 72 18 89/55 98 Intake and Output 12/14/17 12/15/17 12/15/17 23:59 07:59 15:59 Intake Total 25 / 25 0 / 0 Output Total 0 / 0 200 / 200 Balance 25 / 25 -200 / -200 Intake: IV Fluids 25 / 25 Cardizem 50 MG In 0.9 % Sodium 25 / 25 Chloride 40 ML @ 5 MG/HR 5 mls/ hr IVC .Q10H ANDREW Rx#:[id number] Oral 0 / 0 Output: Urine 0 / 0 Straight Cath 200 / 200 Other: Weight 66.1 kg Blood Glucose* 222 197 213 Patient Weight 12/15/17 23:59 Weight 66.1 kg - General Appearance General appearance: well-developed, well-nourished EENT: ATNC, hearing intact, vision intact Neck: supple Respiratory: clear Cardiology: normal S1, normal S2 Gastrointestinal: normoactive bowel sounds, no tenderness, no guarding Integumentary: no rash, warm and dry Neurologic: alert and oriented x3 Psychiatric: mood/affect appropriate, cooperative Results - Lab Results 12/15/17 04:57 12/15/17 04:57 Most recent lab results ABG pH 7.41 pH Units (7.32-7.45) 12/14/17 00:58 ABG pCO2 28 mmHg (35-45) L 12/14/17 00:58 ABG pO2 64 mmHg (85-104) L 12/14/17 00:58 ABG HCO3 18 mEq/L (21-27) L 12/14/17 00:58 ABG O2 Saturation 93 % (95-98) L 12/14/17 00:58 Calcium 8.6 mg/dL (8.6-10.3) 12/15/17 04:57 Magnesium 1.7 mg/dL (1.6-2.6) 12/15/17 04:57 Consult Discharge Plan - Plan Referrals: Lloyd Newman MD [Primary Care Provider] -
[2017-12-15] MEDS ORDERED: 0.9 % Sodium Chloride 1,000 ML IVC SCH (15:15)
[2017-12-15 17:54] LABS: Bilirubin,Urine Moderate (Negative); Blood,Urine Negative (Negative); Clarity,Urine Turbid (Clear); Color,Urine Dark Yellow (Yellow); Glucose,Urine (UA) Normal (Normal); Ketones,Urine Trace mg/dL (Negative); Leukocyte Esterase,Urine Large (Negative); Nitrite,Urine Negative (Negative); Protein,Urine 30 mg/dL (Neg-Trace); Specific Gravity,Urine 1.022 (1.010-1.025); Urobilinogen,Urine Normal (Normal)
[2017-12-15 18:00] LABS: Bacteria,Urine Many per hpf (None-Few); Hyaline Casts,Urine None Seen per lpf (None-Few); Squamous Epithelial Cell,Urine Many per lpf (None-Few); WBC,Urine TNTC per hpf (0-3)
[2017-12-15 18:25] LABS: Protein/Creatinine Ratio,Urine 0.3 mg/mg (0.00-0.20); Sodium, Urine 21.7 mEq/L
[2017-12-15 18:45] LABS: Uric Acid 12.6 mg/dL (2.3-7.6)
[2017-12-16 04:17] LABS: Basophils % 0.5 %; Eosinophils # 0.3 K/mcL (0.0-0.6); Eosinophils % 3.5 %; Hematocrit 21.3 % (35.3-44.9); Hemoglobin 7.3 g/dL (11.5-15.4); Lymphocytes # 0.5 K/mcL (0.6-4.6); Lymphocytes % 6.6 %; Mean Corpuscular HGB Conc 34.3 g/dL (31.6-35.5); Mean Corpuscular Hemoglobin 31.5 pg (28.0-33.3); Mean Corpuscular Volume 91.8 fL (83.0-100.0); Mean Platelet Volume 10.5 fL (9.4-12.4); Monocytes # 0.5 K/mcL (0.0-1.3); Monocytes % 6.1 %; Neutrophils # 6.6 K/mcL (1.6-8.9); Nucleated Red Blood Cells 0.5 /100 WBC (0); Platelet Count 247 K/mcL (140-400); Red Blood Count 2.32 M/mcL (3.82-4.97); Red Cell Distribution Width 13.7 % (11.5-14.5); Segmented Neutrophils % 82.3 %
[2017-12-16 04:40] LABS: Calcium 8.2 mg/dL (8.6-10.3); Magnesium 1.5 mg/dL (1.6-2.6)
[2017-12-16] MEDS: Insulin LISPRO 300 UNITS/3 ML VIAL SQ SCH ×3 (09:28→16:16)
--- NOTE | 2017-12-16 11:07 | Nephrology Progress Note ---
Date of Encounter: 12/16/17 Time of Encounter: 11:01 - Assessment and Plan (1) Acute kidney injury superimposed on chronic kidney disease Current Visit: Yes Status: Acute Dr. Barrow's last note Scr was 1.15 and GFR was 55. Scr is 2.45 and GFR is 19. Scr and GFR elevated in the setting of hypotension related to diuresis in a patient with significant right heart failure. With desai cath in place, accurate I/O has been obtained. 250 cc out today, 200 cc obtained yesterday with straight cath. Urine and serum studies reviewed. EF is 50%. (2) Pulmonary HTN Current Visit: Yes Status: Acute Per echo on 12/14/17 Estimated RVSP is 71 mmHg. Severe pulmonary hypertension. Per pulmonology. Would recommend transferring to tertiary hospital if conservative medicine is not successful. (3) Anemia Current Visit: Yes Status: Acute Goal Hgb is 10-11. Hgb is 7.4 today. Ferritin is > than 1500, Ferrous Sufate started today. Would suggest a unit of PRBC's. Qualifiers: Qualified Code(s): D64.9 - Anemia, unspecified Subjective Principal diagnosis: Afib Interval history: Pt seen and examined, doing well. Continues to be on high flow 50% FIO2. Admits to feeling fatigued. Objective - Vital Signs Vital signs: Vital Signs Temp Pulse Resp BP Pulse Ox 12/16/17 07:10 98.1 F 77 16 111/59 92 12/16/17 04:04 109/54 12/16/17 04:00 97.7 F 80 15 102/56 95 12/15/17 23:19 86 113/64 12/15/17 22:05 110/68 98 12/15/17 20:00 97.7 F 85 15 93/58 92 12/15/17 15:45 95.8 F L 79 20 97/61 94 12/15/17 11:13 96.8 F L 73 18 78/54 94 Intake and Output 12/15/17 12/16/17 12/16/17 23:59 07:59 15:59 Intake Total 600 / 600 0 / 0 Output Total 275 / 275 Balance 600 / 600 -275 / -275 Intake: IV Fluids 500 / 500 ALBURX 5% 12.5 gm In 250 ml @ 500 / 500 60 mls/hr IVC .Q4H10M ANDREW Rx#: [id number] Oral 100 / 100 0 / 0 Output: Urine 25 / 25 Catheter 250 / 250 Other: Weight 67.6 kg Blood Glucose* 206 187 Patient Weight 12/16/17 23:59 Weight 67.6 kg - General Appearance General appearance: Present: well-developed, well-nourished EENT: Present: ATNC, hearing intact, vision intact Neck: Present: supple Respiratory: Present: clear Cardiology: Present: no edema, normal S1, normal S2 Gastrointestinal: Present: normoactive bowel sounds, no tenderness, no guarding Integumentary: Present: no rash, warm and dry Neurologic: Present: alert and oriented x3 Psychiatric: Present: mood/affect appropriate, cooperative - Lab 12/16/17 03:28 12/16/17 03:28 Most recent lab results ABG pH 7.41 pH Units (7.32-7.45) 12/14/17 00:58 ABG pCO2 28 mmHg (35-45) L 12/14/17 00:58 ABG pO2 64 mmHg (85-104) L 12/14/17 00:58 ABG HCO3 18 mEq/L (21-27) L 12/14/17 00:58 ABG O2 Saturation 93 % (95-98) L 12/14/17 00:58 Calcium 8.2 mg/dL (8.6-10.3) L 12/16/17 03:28 Magnesium 1.5 mg/dL (1.6-2.6) L 12/16/17 03:28 Urine Creatinine 213 mg/dL 12/15/17 17:26 Urine Sodium 21.7 mEq/L 12/15/17 17:26 Urine Total Protein 64 mg/dL (1-14) H 12/15/17 17:26 - VTE Documentation of Mechanical Device: Intermittent pneumatic compression device Consult Discharge Plan - Plan Referrals: Lloyd Newman MD [Primary Care Provider] -
--- NOTE | 2017-12-16 13:26 | Cardiology Progress Note ---
Date of Encounter: 12/16/17 Time of Encounter: 13:20 Assessment and Plan (1) Acute respiratory failure with hypoxia Current Visit: Yes Status: Acute Per Cardiology: Pulmonology saw. Still requiring high flow O2-- reports not on oxygen at home. (2) Elevated d-dimer Current Visit: Yes Status: Acute Per Cardiology: D-dimer elevated at 3000's, VQ scan low probability for PE. (3) Atrial fibrillation with rapid ventricular response Current Visit: Yes Status: Acute Per Cardiology: Apparent history of atrial fibrillation and reports on flecainide therapy for past 10 years-- has been off during stay. Now on Cardizem 30 mg by mouth every 6 hours. Currently telemetry shows average heart rate 61 the past 12 hours, currently afib 70's - 80's with intermittent AV pacing. Current systolic blood pressures 100s to 120s. We will convert to long-acting Cardizem CD 120 mg by mouth daily and titrate as needed. Discussed and reviewed with Dr. Toni Renee , we will continue to hold flecainide for now. We will continue to obtain medical records from outside facility to determine type of pacemaker and possible pacer interrogation to determine length of time of atrial fibrillation. Regarding long-term anticoagulation, historically on full dose aspirin only. Off for now with anemia. (4) Anemia Current Visit: Yes Status: Acute Per Cardiology: H&H overall downward trend with current hemoglobin in the sevens. Patient denies any active bleeding or blood loss, however does report dark tarry stool on toilet paper about one week ago. Check occult stool. on hold. Recommend GI evaluation. Consider blood transfusion. Long-term anticoagulation needs to be reevaluated. Qualifiers: Anemia type: unspecified type Qualified Code(s): D64.9 - Anemia, unspecified (5) CHF exacerbation Current Visit: Yes Status: Acute Per Cardiology: Net I&O -280ml. BNP noted to be 1313. CXR appears improved. Will add strict I&O and 1.5 L fluid restriction. Lasix of fo rnow d/t worsening kidney fxn. Qualifiers: Heart failure type: right-sided Qualified Code(s): I50.813 - Acute on chronic right heart failure (6) TORITO (acute kidney injury) Current Visit: Yes Status: Acute Per Cardiology: Creatinine worsening from 1.39-2.42. Nephrology following. (7) Hypotension Current Visit: Yes Status: Acute Per Cardiology: Suspect multifactorial. Improved. Qualifiers: Hypotension type: hypotension due to hypovolemia Qualified Code(s): I95.89 - Other hypotension; E86.1 - Hypovolemia (8) Elevated troponin Current Visit: Yes Status: Acute Per Cardiology: Troponins flat and adynamic with peak at 0.07 likely secondary to AF with RVR and CHF but unknown recent ischemic evluation. Current echo showed: Impressions: LVEF 60%. Mild left ventricular hypertrophy. RV size is enlarged. Function is normal by Doppler. Subtle septal flattening during diastole suggests RV volume overload. Bi-atrial enlargement. Moderate-severe tricuspid regurgitation. Estimated RVSP is 71 mmHg. Severe pulmonary hypertension. A device lead was visualized in the right atrium and right ventricle. The IVC is dilated. Left Ventricular Wall Motion: Rest Echo Findings All wall segments showed normal motion. Suspect type II non-STEMI demand ischemia. Chest pain-free. Discussion w patient/family: The assessment and plan as outlined above was discussed with the patient and/or family members who expressed understanding and agreement. All questions were answered. Thank you for involving us in the care of your patient. Please call with any questions. Subjective Principal diagnosis: Afib Interval history: Patient reports mild improvement in shortness of breath at rest. She denies any chest pain, palpitations, edema, any awareness of any active bleeding or blood loss. Objective Vital Signs, Last 4 Hours Temp Pulse Resp BP Pulse Ox 12/16/17 11:53 98.8 F 93 17 123/60 95 General: Conversant HEENT: Atraumatic, Normocephaly Neck: No JVD, Normal carotid pulses Cardiac: No Murmur, Other (Irregularly irregular) Lungs: Other (Diminished breath sounds throughout) Neuro: Alert and responsive, No focal deficits noted Abdomen: Soft, Non-Tender Skin: No rashes noted on visualized skin Musculoskeletal: No Chest Wall Tenderness Extremities: No Edema, Normal Pulses Results 12/16/17 03:28 12/16/17 03:28 Lab Results Laboratory Tests 12/16/17 12/16/17 03:28 03:28 Hgb 7.3 L Hct 21.3 L Creatinine 2.45 H Est GFR (Non-Af Amer) 19 L Impressions Chest X-Ray 09/10/18 10:58 IMPRESSION: Persistent bilateral upper lobe interstitial disease. Improving left pleural effusion and basilar atelectasis. D/ / 12/15/2017 14:48:17 Fred Walton MD / sherry Interpreting Provider: Fred Walton MD Retroperitoneum Ultrasound 12/15/17 13:30 IMPRESSION: 1. Unremarkable appearance of the kidneys with no evidence for hydronephrosis. 2. Nonvisualization of the bladder. Findings may reflect collapse of the bladder. 3. Incidental note of small amount of ascites adjacent to the liver as well as right pleural effusion. 4. Nonspecific gallbladder wall thickening measuring 0.6 cm. Findings may be related to edematous state. Correlate clinically to exclude the possibility of acute cholecystitis. D/ / Guerrero Singleton MD / Guerrero Singleton MD Interpreting Provider: Guerrero Singleton MD Intake & Output 12/13/17 12/14/17 12/15/17 12/16/17 23:59 23:59 23:59 23:59 Intake Total 0 / 0 245 / 245 600 / 600 0 / 0 Output Total 0 / 0 650 / 650 200 / 200 275 / 275 Balance 0 / 0 -405 / -405 400 / 400 -275 / -275 Weight 65.3 kg 65.7 kg 66.1 kg 67.6 kg Active Medications Acetaminophen (Tylenol) 650 mg PO Q6HR PRN PRN Reason: Fever Stop: 06/15/18 14:34 Last Admin: 12/15/17 18:11 Dose: 650 mg Albuterol/Ipratropium (Duoneb) 3 ml IH [id number] PRN PRN Reason: Shortness Of Breath/Wheezing Stop: 06/15/18 14:46 Dextrose/Water (Dextrose 50% (Syg)) 25 ml IVP AD PRN PRN Reason: Hypoglycemia Stop: 06/14/18 18:07 Diltiazem HCl (Cardizem) 30 mg PO Q6HR ANDREW Stop: 06/16/18 12:01 Last Admin: 12/16/17 12:56 Dose: 30 mg Duloxetine HCl (Cymbalta) 30 mg PO BID [facility] Stop: 06/14/18 21:01 Last Admin: 12/16/17 09:29 Dose: 30 mg Ferrous Sulfate (Ferrous Sulfate) 325 mg PO DAILY@0800 [facility] Stop: 06/17/18 08:01 Last Admin: 12/16/17 09:29 Dose: 325 mg Glucagon (Glucagen) 1 mg IM ONCE PRN PRN Reason: Hypoglycemia Stop: 06/14/18 18:07 Glucose (Gluctose) 15 gm PO ONCE PRN PRN Reason: Hypoglycemia Stop: 06/14/18 18:07 Glucose (Gluctose) 30 gm PO ONCE PRN PRN Reason: Hypoglycemia Stop: 06/14/18 18:07 Dextrose (Dextrose 5%) 1,000 mls @ 100 mls/hr IVC .Q10H PRN PRN Reason: HYPOGLYCEMIA Stop: 06/14/18 18:07 Insulin Human Lispro (Humalog) 0 units SQ TIDAC ANDREW PRN Reason: Protocol Stop: 06/15/18 07:31 Last Admin: 12/16/17 12:57 Dose: 4 units Insulin Human Lispro (Humalog) 0 units SQ HS ANDREW PRN Reason: Protocol Stop: 06/14/18 21:01 Last Admin: 12/15/17 20:18 Dose: Not Given Loperamide HCl (Imodium) 2 mg PO QID PRN PRN Reason: Diarrhea Stop: 06/15/18 10:40 Last Admin: 12/14/17 14:45 Dose: 2 mg Naloxone HCl (Narcan) 0.4 mg IVP Q2MIN PRN PRN Reason: SEE COMMENTS Stop: 06/14/18 18:09 - Imaging and Cardiology Chest Xray: report reviewed Echo: report reviewed - EKG Interpretation EKG results cardiology: other (Telemetry reviewed with average her with past 12 hours 61, currently A. fib in the 70s to 80s with intermittent AV pacing) - VTE Documentation of Mechanical Device: Intermittent pneumatic compression device Consult Discharge Plan - Plan Referrals: Lloyd Newman MD [Primary Care Provider] -
[2017-12-16] MEDS ORDERED: Diltiazem CD (24hr) 120 MG CAPSULE PO SCH (13:45)
--- NOTE | 2017-12-16 14:37 | Discharge Summary ---
Orders not resulted at time of discharge: Pending orders 12/15/17 11:02 Occult Blood, Gastric [BF] Routine Date of Encounter: 12/16/17 Time of Encounter: 13:30 - Discharge Diagnosis (1) Atrial fibrillation with rapid ventricular response Priority: Primary Status: Acute (2) Pulmonary edema Priority: Primary Status: Acute Qualifiers: Chronicity: acute Qualified Code(s): J81.0 - Acute pulmonary edema (3) CHF exacerbation Priority: Primary Status: Acute Qualifiers: Heart failure type: right-sided Qualified Code(s): I50.813 - Acute on chronic right heart failure (4) Elevated troponin Priority: Primary Status: Acute (5) HTN (hypertension) Priority: Secondary Status: Chronic Qualifiers: Hypertension type: essential hypertension Qualified Code(s): I10 - Essential (primary) hypertension (6) Acute respiratory failure with hypoxia Priority: Primary Status: Acute (7) Diabetes mellitus Priority: Secondary Status: Chronic Qualifiers: Diabetes mellitus type: type 2 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: without marine oil terminal superintendent use Diabetes mellitus complication status: with kidney complications Diabetes mellitus complication detail: with chronic kidney disease Chronic kidney disease stage: stage 3 (moderate) Qualified Code(s): E11.22 - Type 2 diabetes mellitus with diabetic chronic kidney disease; N18.3 - Chronic kidney disease, stage 3 (moderate) (8) Anemia Priority: Primary Status: Acute Qualifiers: Anemia type: iron deficiency Qualified Code(s): D50.0 - Iron deficiency anemia secondary to blood loss (chronic) (9) Acute kidney injury superimposed on chronic kidney disease Priority: Primary Status: Acute (10) Pulmonary HTN Priority: Primary Status: Acute Hospital course: Ms. Colon is a 76 year old female present to ER for shortness of breath. Past medical history is significant for A. fib on PPM, CKD, diabetes, hypertension. In the emergency room, patient was found elevated BNP. Chest x- ray shows pulmonary edema and pulmonary vascular congestion. EKG shows A. fib with RVR. Patient was treated with Cardizem drip and IV Lasix. Patient does not use oxygen at home but need high flow oxygen now. D-dimer is elevated, VQ scan shows low probability of PE. Patient is not tolerate Lasix treatment, which cause worsening renal function. Nephrology, cardiology, and the pulmonology consult was called. Lasix is on hold and low rate IV fluid was given for TORITO. Further echocardiogram shows severe pulmonary hypertension with RVSP 71mmHg. pulmonology recommend transfer patient to [facility] hospital for further management as patient may need [place] catheter test. I have discussed transfer options with patient and family, patient had PPM placed in [facility] and prefer [facility] transfer. I have called transfer center, will transfer patient to [facility] as bed is available. I saw and examined this patient today. She still in acute respiratory distress and need high flow oxygen. No fever. No improvement in symptoms. Vitals are generally stable. Will continue current treatment at our hospital until patient is transferred to [facility]. Continue closely monitoring in the hospital and during transportation. - Time Spent with Patient Total time spent providing and/or coordinating discharge services: 40 minutes Greater than 30 minutes - Discharge Medications Home Medications: NIFEdipine XL (24 HR) [Procardia XL] 30 mg PO QPM #30 tablet.er 11/25/17 [Rx] Aspirin [Ecotrin] 325 mg PO DAILY 12/13/17 [History] Carvedilol [Coreg] 25 mg PO BID 12/13/17 [History] Duloxetine HCl [Cymbalta] 30 mg PO BID 12/13/17 [History] Flecainide Acetate 50 mg PO BID 12/13/17 [History] Metformin HCl 1,000 mg PO BID 12/13/17 [History] Ramipril [Altace] 10 mg PO BID 12/13/17 [History] Acetaminophen [Tylenol] 650 mg PO Q6HR PRN tablet 12/16/17 [Rx] Dextrose 50 % in Water (Syg) [Dextrose 50% (Syg)] 25 ml IVP AD PRN syringe 02/22 [Rx] Dextrose Gel [Gluctose] 15 gm PO ONCE PRN tube 12/16/17 [Rx] Dextrose Gel [Gluctose] 30 gm PO ONCE PRN tube 12/16/17 [Rx] Diltiazem CD (24hr) [Cardizem CD] 120 mg PO DAILY cap.er.24h 12/16/17 [Rx] Ferrous Sulfate 325 mg PO DAILY@0800 tablet 12/16/17 [Rx] Insulin LISPRO [HumaLOG] 0 units SQ HS vial 12/16/17 [Rx] Insulin LISPRO [HumaLOG] 0 units SQ TIDAC vial 12/16/17 [Rx] Ipratropium/Albuterol Neb [Duoneb] 3 ml IH [id number] PRN inhsol 12/16/17 [Rx] Allergies/Adverse Reactions: 3 Allergy/AdvReac Type Severity Reaction Status Date / Time amino acids [From Ephadrene] Allergy Confusion Verified 11/25/17 14:13 chromium [From Ephadrene] Allergy Confusion Verified 11/25/17 14:13 cyanocobalamin (vitamin B12) Allergy Confusion Verified 11/25/17 14:13 [From Ephadrene] herbal complex no. 35 Allergy Confusion Verified 11/25/17 14:13 [From Ephadrene] iodine Allergy Rash Verified 11/25/17 14:13 Penicillins Allergy Rash Verified 11/25/17 14:13 pyridoxine [From Ephadrene] Allergy Confusion Verified 11/25/17 14:13 Date of admission: 12/13/17 18:30 Primary care physician: Lloyd Newman MD Consults: 12/13/17 20:35 Consult to Occupational Therapy [CONS] Routine Comment: Evaluate, develop and implement POC Reason for Consult: Patient has hx of falls and reports falling one week ago and hitting her head. Please assess patient for ambulation strength , stability, safety, and possible home assistive/ rehabilitation needs for post-discharge planning. Does patient have active BEDREST order?: No Is patient medically & hemodynamically stable?: Yes Patient assessed for mobility or mobilized this visit?: No Consult to Physical Therapy [CONS] Routine Comment: Evaluate, develop and implement POC Reason for Consult: Patient has hx of falls and reports falling one week ago and hitting her head. Please assess patient for ambulation strength , stability, safety, and possible home assistive/ rehabilitation needs for post-discharge planning. Does patient have active BEDREST order?: No Is patient medically & hemodynamically stable?: Yes Patient assessed for mobility or mobilized this visit?: No 12/13/17 20:37 Consult to Deputy Controller [CONS] Routine Reason for SW Consult: Will likely be discharged with at least rehab/home health. 12/15/17 09:52 Consult to Pulmonology [CONS] Routine Consulting Provider: Pulm Crit Care & Sleep Karol Reason for Consult: Acute respiratory failure, right heart failure, a.fib with RVR ?PE although V/Q scan showed low probability Call Completed: Yes 12/15/17 13:43 Consult to Nephrology [CONS] Routine Consulting Provider: Kidney Karol/SABA/LUCERO/CHARLES Reason for Consult: TORITO on CKD, worsening; admitted with acute right heart failure, resp failure, a.fib with RVR Call Completed: Yes 12/15/17 18:28 Consult to Nutrition [CONS] Routine Comment: Patient not eating well, family request supplement Consulting Provider: NUTRITION Reason for Dietary Consult: PO Supplementation Discharging clinician: Thalia Floyd Anticipated date of discharge: 12/16/17 - Constitutional Vitals: Temp Pulse Resp BP Pulse Ox 98.8 F 93 17 123/60 95 12/16/17 11:53 12/16/17 11:53 12/16/17 11:53 12/16/17 11:53 12/16/17 11:53 General appearance: Present: mild distress, A&O X 3, answers questions appropriately Exam: Patient is on high flow oxygen and in respiratory distress - Head Head exam: Present: atraumatic, normocephalic - Eye Eye exam: Present: PERRL, conjuntiva pink, sclera anicteric Pupils: Present: PERRL - Neck Neck exam general surgery: Present: supple, trachea midline. Absent: lymphadenopathy - Respiratory Respiratory exam: Present: CTAB. Absent: accessory muscle use, rales, rhonchi, wheezes Additional comments: Coarse breath sounds bilaterally - Cardiovascular Cardiovascular exam: Present: irregular rhythm, +S1, +S2. Absent: diastolic murmur, gallop, rubs, systolic murmur - GI/Abdominal GI/Abdominal exam: Present: normal bowel sounds, soft, no peritoneal signs. Absent: distended, tenderness - Extremities Exam Extremities exam: Present: warm, radial pulses palpable and symmetrical. Absent : calf tenderness, cyanotic, pedal edema - Neurological Exam Neurological exam: Present: CN II-XII intact, oriented X3, no focal deficits. Absent: pronater drift, facial droop, speech deficit - Skin Skin exam: Present: dry, intact - Patient Status Disposition: Transfer Critical Access Hosp Condition: Fair Functional capacity at discharge: bed bound Overall status at discharge: patient is not back to baseline - Discharge Instructions Follow Up With: Lloyd Newman MD [Primary Care Provider] - - Diet and Activity Activity: wear oxygen at all times Diet: diabetic diet, low fat, low cholesterol, low salt diet, other (Fluid restriction 1500 ml per day) - VTE Documentation of Mechanical Device: Intermittent pneumatic compression device
[2017-12-16] MEDS: Acetaminophen 325 MG TABLET PO PRN (16:14)
[2017-12-16 20:11] VITALS: BP 130/82
--- NOTE | 2017-12-17 16:51 | Electrocardiograph Report ---
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
--- NOTE | 2017-12-17 16:55 | Electrocardiograph Report ---
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
== END 2017-12-16 20:55 | disposition critical access hospital (66) | DRG 291 ==
LOC: EMEROOARM 16:04 → 2NENU 18:30 → SUATTDRO 18:30 → 2NENU 19:47
PROVIDERS: ADMIT Internal Medicine; ATTEND Internal Medicine